=== PATIENT | female | born 1980 | race Caucasian/White ===

== ENCOUNTER → 2020-09-18 14:22 | Outpatient (CLI) | payer SELFPAY ==
[2020-09-18 13:39] VITALS: BMI 35.2
[2020-09-18 15:08] LABS: Absolute Lymphocyte Count 1.49 X10^3/uL (0.83-4.51); Absolute Neutrophil Count 4.8 X10^3/uL (2.0-7.7); Basophil# 0.04 X10^3/uL; Basophil% 0.6 % (0-1); Eosinophil# 0.31 X10^3/uL; Eosinophils% 4.5 % (0-5); Hematocrit 42.3 % (37-47); Hemoglobin 13.9 g/dL (12.0-15.0); Lymphocyte # 1.49 X10^3/ul (0.83-4.51); Lymphocyte % 21.5 % (19-41); Mean Corp Hgb Conc 32.9 g/dL (32-36); Mean Corpuscular Hgb 30.8 pg (27.0-32.0); Mean Corpuscular Volume 93.6 fL (81-99); Mean Platelet Vol. 10.9 fl (6.2-12.0); Monocyte% 4.3 % (0-10); NRBC Flagged by Analyzer 0 % (0-5); Neutrophil # 4.78 X10^3/uL (2.7-7.7); Neutrophil % 68.8 % (47-70); Platelet Count 293 K/mm3 (150-450); RBC Distribution Width CV 12.6 % (11.6-14.6); RBC Distribution Width SD 43.5 fl (35.1-43.9); Red Blood Count 4.52 M/mm3 (4.2-5.4); White Blood Count 6.9 K/mm3 (4.4-11.0)
[2020-09-18 15:50] LABS: Vitamin D,25 Hydroxy 35.9 ng/mL
[2020-09-18 15:59] LABS: AST(SGOT) 20 U/L (15-37); Alanine Aminotransfer ALT/SGPT 33 U/L (13-56); Albumin, Serum 4.1 g/dL (3.2-5.0); Alkaline Phosphatase 79 U/L (45-117); Anion Gap 10 (5-15); BUN 10 mg/dL (7-18); BUN/Creat Ratio 11.1 RATIO (10-20); Calcium,Total 8.9 mg/dL (8.5-10.1); Chloride 104 mmol/L (98-107); Cholesterol 194 mg/dL (200); EST Glomerular Filtration Rate 74 mL/min (>60); Est Glom Filt Rate - Afr Amer 90 mL/min (>60); Free T3 2.2 pg/mL (2.18-3.98); Globulin 4.1 g/dL (2.2-4.2); Glucose 81 mg/dL (74-106); High Density Lipoprotein 63 mg/dL; Potassium 3.9 mmol/L (3.5-5.1); Protein, Total 8.2 g/dL (6.4-8.2); Sodium Level 142 mmol/L (136-145); T4 Free Direct 1.19 ng/dL (0.76-1.46); Thyroid Stim Hormone (TSH) 2.12 uIU/mL (0.358-3.74); Triglycerides 161 mg/dL; Very Low Density Lipoprotein 32 mg/dL (5-40)
== END ==
PROVIDERS: Physician Assistant; PCP Internal Medicine; Referring Provider Internal Medicine; Visit Provider Internal Medicine
DX: E03.9 Hypothyroidism, unspecified (principal); R00.2 Palpitations; R07.9 Chest pain, unspecified; F41.9 Anxiety disorder, unspecified
CPT/HCPCS: 36415; 80053; 80061; 82306; 83036; 84439; 84443; 84481; 85025

== ENCOUNTER → 2020-09-19 10:22 | Outpatient (CLI) | payer SELFPAY ==
[2020-09-18 13:39] VITALS: BMI 35.2
--- NOTE | 2020-09-19 10:25 | EKG12_ITS ---
Test Reason : CP Blood Pressure : / mmHG Vent. Rate : 077 BPM Atrial Rate : 077 BPM P-R Int : 132 ms QRS Dur : 082 ms QT Int : 396 ms P-R-T Axes : 053 081 053 degrees QTc Int : 448 ms Normal sinus rhythm Normal ECG Confirmed by KELSEY LANCE, MARGI ([id number]), medical transcription editor SIXTO MAYO ([id number]) on 09/20/2020 10:18:09 AM Referred By: Mariam Millan Confirmed By:MARGI COLE MD
--- NOTE | 2020-09-19 10:40 | RAD_ITS ---
STUDY: X-RAY CHEST REASON FOR EXAM: Female, 39 years old. Chest pain TECHNIQUE: PA and lateral views of the chest. COMPARISON: None. FINDINGS: The lungs are clear and expanded. There is no demonstrated pleural abnormality. Normal size heart. Normal mediastinum and harry. Normal visualized pulmonary arteries. Normal visualized aortic arch and descending thoracic aorta. Normal visualized thoracic spine. Normal visualized ribs, clavicles, and shoulders. There is no demonstrated abnormality of the visualized soft tissue structures of the upper abdomen. RAD/Chest PA and Lateral IMPRESSION: Normal x-ray examination of the chest. Electronically Signed: Maynor Strong MD at 13:35 EDT Tel , Service support ,
== END ==
PROVIDERS: PCP Internal Medicine; Referring Provider Physician Assistant; Visit Provider Physician Assistant
DX: R07.9 Chest pain, unspecified (principal); R00.2 Palpitations; E03.9 Hypothyroidism, unspecified; F10.10 Alcohol abuse, uncomplicated; F41.9 Anxiety disorder, unspecified
CPT/HCPCS: 71046; 93005

== ENCOUNTER → 2020-10-11 12:10 | Outpatient (CLI) | payer SELFPAY ==
[2020-10-10 14:54] VITALS: BMI 35.2
== END ==
LOC: BIMLAB 12:11
PROVIDERS: PCP Internal Medicine; Referring Provider Internal Medicine; Visit Provider Internal Medicine
DX: R03.0 Elevated blood-pressure reading, without diagnosis of hypertension (principal); R07.89 Other chest pain
CPT/HCPCS: 36415; 82088; 84244

== ENCOUNTER → 2020-10-17 | Outpatient (CLI) | payer SELFPAY ==
[2020-10-10 14:54] VITALS: BMI 35.2
[2020-10-20 12:08] LABS: Cortisol, Urinary Free 17 ug/L (Undefined); Dopamine, UR 93 ug/L (Undefined); Epinephrine, 24Ur 5 ug/24 hr (0-20); Epinephrine, Ur 3 ug/L (Undefined); Norepinephrine, 24Ur 33 ug/24 hr (0-135); Norepinephrine, Ur 21 ug/L (Undefined)
[2020-10-20 13:02] LABS: Cortisol, Free 24Ur 26 ug/24 hr (6-42); Dopamine, 24Ur 144 ug/24 hr (0-510)
== END | disposition home or self-care (01) ==
LOC: LABSPEC 09:18
PROVIDERS: PCP Internal Medicine; Referring Provider Internal Medicine; Visit Provider Internal Medicine
DX: R03.0 Elevated blood-pressure reading, without diagnosis of hypertension (principal); R07.89 Other chest pain
CPT/HCPCS: 81050; 82384; 82530

== ENCOUNTER 2021-07-05 08:42 | Emergency (ER) | payer SELFPAY ==
[2021-07-05 08:42] VITALS: BP 149/96; PULSE 100; RESP 16; TEMP 36.1; O2SAT 97; BMI 32.3
[2021-07-05 08:51] VITALS: RESP 17
--- NOTE | 2021-07-05 09:15 | CT_ITS ---
STUDY: CT ABDOMEN AND PELVIS WITHOUT CONTRAST REASON FOR EXAM: Female, 40 years old. Left-sided flank pain. History of kidney stones. RADIATION DOSAGE (If Supplied By Facility): CTDIvol = ( 14.82 ) mGy, DLP = ( 751.67 ) mGycm TECHNIQUE: Transaxial images were obtained from the dome of the diaphragm to the symphysis pubis without oral contrast, and without intravenous contrast. Sagittal and coronal images were reconstructed. Individualized dose optimization techniques were used for this CT. COMPARISON: Comparison is made with prior study 12/30/2011. FINDINGS: The visualized lung bases are unremarkable. The visualized portions of the heart are within normal limits. Normal liver. Normal gallbladder and extrahepatic biliary system. Normal spleen. Normal pancreas. Normal bilateral adrenal glands. Normal right kidney. Normal left kidney. There is a small hiatal hernia. Normal small intestine. Normal colon. The appendix is visualized and appears normal. Normal abdominal aorta. Normal inferior vena cava. Normal retroperitoneum. Normal urinary bladder. Small amount of free fluid is seen in the cul-de-sac. Normal abdominal wall. Normal osseous structures. CT/Abdomen/Pelvis without Cont IMPRESSION: Small amount of free fluid is seen in the cul-de-sac. Electronically Signed: Mikey Araujo MD at 10:54 EDT ,
--- NOTE | 2021-07-05 09:16 | EX.ED.DYSGE1 ---
HPI <DOLLY Burns - Last Filed: 07/05/21 11:33> History of Present Illness Chief Complaint: Flank Pain Narrative Narrative: 40-year-old female with history of hypothyroidism presents to the emergency department with left-sided flank pain. Patient states that 4 days ago, she believes she had a bladder infection, she was having urgency, bladder spasms. Patient states that yesterday she developed sharp pains to her left flank and is radiating around her left side. Patient has had kidney stones in the past states this does feel similar. Denies any fevers or chills. Patient states the pain can go anywhere from a 4 to a 10. Patient has been using EZO which has given her little relief. She is here for evaluation. PFS <DOLLY Burns - Last Filed: 07/05/21 11:33> [facility] Medical History (Updated 07/05/21 @ 11:12 by DOLLY Burns) Anemia Arthritis section wound complication Hernia History of kidney stones Nephrolithiasis Urinary tract infection Home Medications 5-hydroxytryptophan (5-HTP) 100 mg capsule 100 mg PO DAILY 09/18/20 [History Last Taken Unknown] PROBIOITCIS PO 09/18/20 [History Last Taken Unknown] aDRENAL-LF PO 09/18/20 [History Last Taken Unknown] digestive enzymes 1 cap PO DAILY 09/18/20 [History Last Taken Unknown] hpa- [place]-LF PO 09/18/20 [History Last Taken Unknown] levothyroxine 125 mcg tablet 125 mcg PO DAILY 09/18/20 [History Last Taken Unknown] melatonin 5 mg capsule mg PO 09/18/20 [History Last Taken Unknown] tLHGAS-FXV-QSK-BORON PO 09/18/20 [History Last Taken Unknown] hydroxyzine HCl 50 mg tablet 50 mg PO ONCE PRN #30 tab 09/20/20 [Rx Last Taken Unknown] hemp chew PO 10/10/20 [History Last Taken Unknown] JAMBOLA PO 10/11/20 [History Last Taken Unknown] cephalexin 500 mg PO Q6 #40 cap 07/05/21 [Rx Last Taken Unknown] oxycodone-acetaminophen [Percocet] 1 tab PO Q6H PRN 2 Days #7 tab 07/05/21 [Rx Last Taken Unknown] Allergy/AdvReac Type Severity Reaction Status Date / Time iodamide Allergy Mild edema Verified 10/10/20 14:52 Family History Other Anxiety CVA (cerebral vascular accident) Hypertension Thyroid disorder Social History (Updated 09/21/20 @ 08:37 by KIESHA Jernigan) Smoking Status: Never smoker alcohol intake: current alcohol intake frequency: 3 or more drinks per day Alcohol type: wine and hard liquor substance use type: does not use ROS <DOLLY Burns - Last Filed: 07/05/21 11:33> ROS ED ROS Narrative Constitutional: Negative for fever, chills, weight loss, weakness Eyes: Negative for vision loss, vision change, double vision ENT: Negative for any sore throat, ear pain, congestion Cardiovascular: Negative for any chest pain, tightness, palpitations, racing heartbeat Respiratory: Negative for any cough, sputum production, hemoptysis, shortness of breath, shortness of breath on exertion, orthopnea Gastrointestinal: Negative for any abdominal pain, vomiting, diarrhea, constipation, blood in stool, blood in vomit. Positive for nausea : Negative for any urinary frequency, incontinence, dysuria, retention, blood in urine Muscle skeletal: Negative for any muscle joint pain, stiffness, myalgias, arthralgias, neck pain. Positive for left-sided back pain, flank pain Neurological: Negative for any headache, dizziness, syncope, numbness or tingling Skin: Negative for any rashes, lumps, itching, abrasions, lacerations Psychiatric: Negative for any depression, anxiety, stress, suicidal ideation, homicidal ideation Hematologic: Negative for any easy bruising, excessive bruising, easy bleeding Allergies: Negative for any eczema, hives, rash EXAM <DOLLY Burns - Last Filed: 07/05/21 11:33> Physical Exam Narrative Exam Narrative: Vital signs reviewed. Patient is tearful on examination, mild distress secondary to left-sided flank pain. HEET: Head normocephalic atraumatic, TMs clear bilaterally. Posterior pharynx is clear, moist mucous membranes. Nares clear bilaterally. Neck: Supple with no lymphadenopathy or tenderness. No signs of meningismus, negative jolt sign. Cardiac: Regular rate and rhythm no murmurs gallops or rubs, equal peripheral pulses bilaterally. Respiratory: Lungs clear to auscultation bilaterally. No chest tenderness. Abdomen: Soft, nontender, nondistended. No abdominal bruit or pulsatile masses. No hepatosplenomegaly Extremities: No peripheral edema, no signs of gross trauma or deformity. Active full range of motion of all extremities. Neuro: Cranial nerves II through XII intact, no focal neurological deficits. Skin: Clean dry and intact with no rash, purpura, petechiae, vesicles or pustules. Backslash flank: Left-sided CVA tenderness, no midline spinal tenderness, no deformity. Psych: Normal mood and affect. No SI, HI or acute psychosis. Const Vital Signs: 07/05/21 08:42 07/05/21 08:51 07/05/21 11:09 Temperature 96.9 F L Temperature Source Temporal Pulse Rate 100 73 Respiratory Rate 16 17 16 Blood Pressure 149/96 H 124/86 H Blood Pressure Mean 113 98 Pulse Ox 97 98 Oxygen Delivery Method Room Air Room Air 07/05/21 11:31 Temperature Temperature Source Pulse Rate 79 Respiratory Rate Blood Pressure 129/84 H Blood Pressure Mean Pulse Ox 100 Oxygen Delivery Method <Dr. Talon Jones DO - Last Filed: 07/05/21 11:28> Physical Exam Const Vital Signs: 07/05/21 08:42 07/05/21 08:51 07/05/21 11:09 Temperature 96.9 F L Temperature Source Temporal Pulse Rate 100 73 Respiratory Rate 16 17 16 Blood Pressure 149/96 H 124/86 H Blood Pressure Mean 113 98 Pulse Ox 97 98 Oxygen Delivery Method Room Air Room Air 07/05/21 11:31 Temperature Temperature Source Pulse Rate 79 Respiratory Rate Blood Pressure 129/84 H Blood Pressure Mean Pulse Ox 100 Oxygen Delivery Method [facility] <DOLLY Burns - Last Filed: 07/05/21 11:33> [facility] Narrative Medical decision making narrative: Patient appears to be in mild distress secondary left flank pain, patient has had left-sided flank pain for 2 days, urinary tract infectious symptoms for the last 4 days. Patient did receive a kidney stone/pyelonephritis work-up, patient's chemistries were unremarkable, patient CBC was unremarkable. Patient did receive a urinalysis that did show +2 bacteria with leukocytes, positive nitrites. Patient did receive a CT scan of the abdomen pelvis, this did show no renal calculi however did show some small amount of free fluid in the cul-de-sac. This could be secondary to a ruptured ovarian cyst which she states she has had in the past. At this time, I do not believe the patient has an infected kidney stone, patient will be treated for pyelonephritis. She will be given IV fluids, IV Rocephin here, she will be treated with Keflex 500 mg 4 times a day for 7 days. She will also be given 2 days of pain medicine to help her sleep. Patient is agreeable with the plan, she instructed to follow-up with her PCP, she is given strict return precautions to return here for any worsening back pain, fever chills nausea vomiting. Lab Data Labs: Laboratory Results - last 24 hr 07/05/21 07/05/21 07/05/21 09:25 09:40 10:01 WBC Cancelled Corrected WBC Cancelled RBC Cancelled Hgb Cancelled Hct Cancelled MCV Cancelled MCH Cancelled MCHC Cancelled RDW Std Deviation Cancelled RDW Coeff of Aleyda Cancelled Plt Count Cancelled MPV Cancelled Immature Gran % (Auto) Cancelled Neut % (Auto) Cancelled Lymph % (Auto) Cancelled [place] % (Auto) Cancelled Eos % (Auto) Cancelled Baso % (Auto) Cancelled Absolute Neuts (auto) Cancelled Absolute Lymphs (auto) Cancelled Total Counted Cancelled Neutrophils % (Manual) Cancelled Band Neutrophils % Cancelled Lymphocytes % (Manual) Cancelled Monocytes % (Manual) Cancelled Eosinophils % (Manual) Cancelled Basophils % (Manual) Cancelled Metamyelocytes % Cancelled Myelocytes % Cancelled Promyelocytes % Cancelled Blast Cells % Cancelled Plasma Cell % (Manual) Cancelled Other Cells % Cancelled Nucleated RBC % Cancelled Nucleated RBCs/100 WBC Cancelled Differential Comment Cancelled Diff Path Review Cancelled Hypersegmented Neuts Cancelled Atypical Lymphocytes Cancelled Reactive Lymphocytes Cancelled Smudge Cells Cancelled Toxic Granulation Cancelled Toxic Vacuolation Cancelled Dohle Bodies Cancelled Ramirez Rods Cancelled Platelet Estimate Cancelled Plt Morphology Comment Cancelled RBC Morphology Cancelled Polychromasia Cancelled Hypochromasia Cancelled Poikilocytosis Cancelled Basophilic Stippling Cancelled Anisocytosis Cancelled Microcytosis Cancelled Macrocytosis Cancelled Spherocytes Cancelled Sickle Cells Cancelled Target Cells Cancelled Tear Drop Cells Cancelled Ovalocytes Cancelled Stomatocytes Cancelled [place] Bodies Cancelled [place] Cells Cancelled Bite Cells Cancelled Crenated Cell Cancelled Acanthocytes (Spur) Cancelled Rouleaux Cancelled Schistocytes Cancelled Sodium 139 Potassium 4.1 Chloride 108 H Carbon Dioxide 26.0 Anion Gap 5 BUN 14 Creatinine 0.87 Estim Creat Clear Calc 82.08 Est GFR (MDRD) Af Amer 94 Est GFR (MDRD) Non-Af 78 BUN/Creatinine Ratio 16.1 Glucose 84 Calcium 9.2 Urine Color SEE COMMENT BELOW Urine Clarity Sl. Cloudy Urine pH 6.5 Ur Specific [place] 1.015 Urine Protein 30 H Urine Glucose (UA) Normal Urine Ketones 5 H Urine Occult Blood 50 H Urine Nitrite Positive H Urine Bilirubin 6 H Urine Urobilinogen 12 H Ur Leukocyte Esterase 500 H Urine RBC 0 SEEN Urine WBC 50-100 SEEN Ur Squamous Epith Cells 0 SEEN Urine Bacteria 2+ Urine Mucus 0 SEEN Urine Test Negative 07/05/21 10:35 WBC 10.1 Corrected WBC RBC 4.27 Hgb 13.3 Hct 38.9 MCV 91.1 MCH 31.1 MCHC 34.2 RDW Std Deviation 41.3 RDW Coeff of Aleyda 12.4 Plt Count 271 MPV 10.5 Immature Gran % (Auto) 0.800 Neut % (Auto) 75.3 H Lymph % (Auto) 15.6 L [place] % (Auto) 5.2 Eos % (Auto) 2.8 Baso % (Auto) 0.3 Absolute Neuts (auto) 7.6 Absolute Lymphs (auto) 1.58 Total Counted Neutrophils % (Manual) Band Neutrophils % Lymphocytes % (Manual) Monocytes % (Manual) Eosinophils % (Manual) Basophils % (Manual) Metamyelocytes % Myelocytes % Promyelocytes % Blast Cells % Plasma Cell % (Manual) Other Cells % Nucleated RBC % 0 Nucleated RBCs/100 WBC Differential Comment Diff Path Review Hypersegmented Neuts Atypical Lymphocytes Reactive Lymphocytes Smudge Cells Toxic Granulation Toxic Vacuolation Dohle Bodies Ramirez Rods Platelet Estimate Plt Morphology Comment RBC Morphology Polychromasia Hypochromasia Poikilocytosis Basophilic Stippling Anisocytosis Microcytosis Macrocytosis Spherocytes Sickle Cells Target Cells Tear Drop Cells Ovalocytes Stomatocytes [place] Bodies [place] Cells Bite Cells Crenated Cell Acanthocytes (Spur) Rouleaux Schistocytes Sodium Potassium Chloride Carbon Dioxide Anion Gap BUN Creatinine Estim Creat Clear Calc Est GFR (MDRD) Af Amer Est GFR (MDRD) Non-Af BUN/Creatinine Ratio Glucose Calcium Urine Color Urine Clarity Urine pH Ur Specific [place] Urine Protein Urine Glucose (UA) Urine Ketones Urine Occult Blood Urine Nitrite Urine Bilirubin Urine Urobilinogen Ur Leukocyte Esterase Urine RBC Urine WBC Ur Squamous Epith Cells Urine Bacteria Urine Mucus Urine Test Radiography Diagnostic Testing: Clinical Impression(s) from Imaging Studies Abdomen/Pelvis CT 07/05/21 09:15 IMPRESSION: Small amount of free fluid is seen in the cul-de-sac. Electronically Signed: Mikey Araujo MD at 10:54 EDT , <Dr. Talon Jones, DO - Last Filed: 07/05/21 11:28> [facility] Narrative Medical decision making narrative: I have personally performed a face to face assessment of the patient and have reviewed the LIVAN Note. I performed a substantive portion of the visit including all aspects of the following. My mckinney findings include: History: Patient presents with left flank pain and lower abdominal pain that has been getting worse over the last couple days. Patient states she started with some pressure in her lower abdomen. Patient states this progressed up into her left flank. Patient denies any fevers or chills. Patient admits to some hematuria and urinary frequency. Patient states she feels like she has pressure over her bladder area. Exam: Vital signs are stable. Patient is afebrile. Patient is in no acute distress. Oral mucosa is pink and moist. Neck is supple. Trachea is midline. There is no JVD. Heart was regular rate and rhythm. Lungs are clear and equal bilaterally. Abdomen is soft. Bowel sounds are normal. There is some mild suprapubic tenderness. There is no rebound or guarding noted. There is left CVA tenderness. Cranial nerves II through XII are intact. There are no focal motor or sensory deficits. Medical Decison Making patient was given IV fluids and Toradol here. CBC was within normal limits. Basic metabolic profile was essentially within normal limits. CT scan of the abdomen pelvis was obtained. There is no acute abnormality noted. There is some mild fluid in the cul-de-sac. This was interpreted by the radiologist and reviewed by myself. Urinalysis shows leukocyte esterases of 500 with 50-100 white blood cells and positive nitrates. There is 2+ bacteria. Patient was given a dose of Rocephin here. Urine culture was ordered. Patient was given a prescription for Keflex. Patient was instructed to follow-up in 5 to 7 days. Patient understood and was agreeable with the plan. All questions were answered. Lab Data Attestation: I reviewed the patient's lab results. Labs: Laboratory Results - last 24 hr 07/05/21 07/05/21 07/05/21 09:25 09:40 10:01 WBC Cancelled Corrected WBC Cancelled RBC Cancelled Hgb Cancelled Hct Cancelled MCV Cancelled MCH Cancelled MCHC Cancelled RDW Std Deviation Cancelled RDW Coeff of Aleyda Cancelled Plt Count Cancelled MPV Cancelled Immature Gran % (Auto) Cancelled Neut % (Auto) Cancelled Lymph % (Auto) Cancelled [place] % (Auto) Cancelled Eos % (Auto) Cancelled Baso % (Auto) Cancelled Absolute Neuts (auto) Cancelled Absolute Lymphs (auto) Cancelled Total Counted Cancelled Neutrophils % (Manual) Cancelled Band Neutrophils % Cancelled Lymphocytes % (Manual) Cancelled Monocytes % (Manual) Cancelled Eosinophils % (Manual) Cancelled Basophils % (Manual) Cancelled Metamyelocytes % Cancelled Myelocytes % Cancelled Promyelocytes % Cancelled Blast Cells % Cancelled Plasma Cell % (Manual) Cancelled Other Cells % Cancelled Nucleated RBC % Cancelled Nucleated RBCs/100 WBC Cancelled Differential Comment Cancelled Diff Path Review Cancelled Hypersegmented Neuts Cancelled Atypical Lymphocytes Cancelled Reactive Lymphocytes Cancelled Smudge Cells Cancelled Toxic Granulation Cancelled Toxic Vacuolation Cancelled Dohle Bodies Cancelled Ramirez Rods Cancelled Platelet Estimate Cancelled Plt Morphology Comment Cancelled RBC Morphology Cancelled Polychromasia Cancelled Hypochromasia Cancelled Poikilocytosis Cancelled Basophilic Stippling Cancelled Anisocytosis Cancelled Microcytosis Cancelled Macrocytosis Cancelled Spherocytes Cancelled Sickle Cells Cancelled Target Cells Cancelled Tear Drop Cells Cancelled Ovalocytes Cancelled Stomatocytes Cancelled [place] Bodies Cancelled [place] Cells Cancelled Bite Cells Cancelled Crenated Cell Cancelled Acanthocytes (Spur) Cancelled Rouleaux Cancelled Schistocytes Cancelled Sodium 139 Potassium 4.1 Chloride 108 H Carbon Dioxide 26.0 Anion Gap 5 BUN 14 Creatinine 0.87 Estim Creat Clear Calc 82.08 Est GFR (MDRD) Af Amer 94 Est GFR (MDRD) Non-Af 78 BUN/Creatinine Ratio 16.1 Glucose 84 Calcium 9.2 Urine Color SEE COMMENT BELOW Urine Clarity Sl. Cloudy Urine pH 6.5 Ur Specific [place] 1.015 Urine Protein 30 H Urine Glucose (UA) Normal Urine Ketones 5 H Urine Occult Blood 50 H Urine Nitrite Positive H Urine Bilirubin 6 H Urine Urobilinogen 12 H Ur Leukocyte Esterase 500 H Urine RBC 0 SEEN Urine WBC 50-100 SEEN Ur Squamous Epith Cells 0 SEEN Urine Bacteria 2+ Urine Mucus 0 SEEN Urine Test Negative 07/05/21 10:35 WBC 10.1 Corrected WBC RBC 4.27 Hgb 13.3 Hct 38.9 MCV 91.1 MCH 31.1 MCHC 34.2 RDW Std Deviation 41.3 RDW Coeff of Aleyda 12.4 Plt Count 271 MPV 10.5 Immature Gran % (Auto) 0.800 Neut % (Auto) 75.3 H Lymph % (Auto) 15.6 L [place] % (Auto) 5.2 Eos % (Auto) 2.8 Baso % (Auto) 0.3 Absolute Neuts (auto) 7.6 Absolute Lymphs (auto) 1.58 Total Counted Neutrophils % (Manual) Band Neutrophils % Lymphocytes % (Manual) Monocytes % (Manual) Eosinophils % (Manual) Basophils % (Manual) Metamyelocytes % Myelocytes % Promyelocytes % Blast Cells % Plasma Cell % (Manual) Other Cells % Nucleated RBC % 0 Nucleated RBCs/100 WBC Differential Comment Diff Path Review Hypersegmented Neuts Atypical Lymphocytes Reactive Lymphocytes Smudge Cells Toxic Granulation Toxic Vacuolation Dohle Bodies Ramirez Rods Platelet Estimate Plt Morphology Comment RBC Morphology Polychromasia Hypochromasia Poikilocytosis Basophilic Stippling Anisocytosis Microcytosis Macrocytosis Spherocytes Sickle Cells Target Cells Tear Drop Cells Ovalocytes Stomatocytes [place] Bodies [place] Cells Bite Cells Crenated Cell Acanthocytes (Spur) Rouleaux Schistocytes Sodium Potassium Chloride Carbon Dioxide Anion Gap BUN Creatinine Estim Creat Clear Calc Est GFR (MDRD) Af Amer Est GFR (MDRD) Non-Af BUN/Creatinine Ratio Glucose Calcium Urine Color Urine Clarity Urine pH Ur Specific [place] Urine Protein Urine Glucose (UA) Urine Ketones Urine Occult Blood Urine Nitrite Urine Bilirubin Urine Urobilinogen Ur Leukocyte Esterase Urine RBC Urine WBC Ur Squamous Epith Cells Urine Bacteria Urine Mucus Urine Test Radiography Diagnostic Testing: Clinical Impression(s) from Imaging Studies Abdomen/Pelvis CT 07/05/21 09:15 IMPRESSION: Small amount of free fluid is seen in the cul-de-sac. Electronically Signed: Mikey Araujo MD at 10:54 EDT , Discharge Plan Triage Chief Complaint: Flank Pain ED Midlevel Provider: Parminder Tariq ED Provider: Talon Jones Dx/Rx/DC Orders Clinical Impression: Pyelonephritis Instructions: Kidney Infec Dc, ED Pyelonephritis, Female (Adult), ED Infec Bladder Female Ch Prescriptions: New cephalexin 500 mg capsule 500 mg PO Q6 Qty: 40 RF: 0 oxycodone-acetaminophen [Percocet] 5-325 mg tablet 1 tab PO Q6H PRN (Reason: pain) 2 Days Qty: 7 RF: 0 No Action hemp chew PO RF: 0 JAMBOLA PO RF: 0 levothyroxine 125 mcg tablet 125 mcg PO DAILY RF: 0 5-hydroxytryptophan (5-HTP) [5-HTP] 100 mg capsule 100 mg PO DAILY RF: 0 melatonin 5 mg capsule PO RF: 0 hpa- [place]-LF PO RF: 0 hRUDWX-QTA-YKU-BORON PO RF: 0 aDRENAL-LF PO RF: 0 digestive enzymes Capsule 1 cap PO DAILY RF: 0 PROBIOITCIS PO RF: 0 hydroxyzine HCl 50 mg tablet 50 mg PO ONCE PRN (Reason: anxiety) Qty: 30 RF: 0 Primary Care Provider: Talia Ball Referrals: Talia Ball MD [Primary Care Provider] - Activity Restrictions/Additional Instructions: Please take the full dose of antibiotics, use pain medicine as needed. Please return for any worsening back pain, fever chills nausea or vomiting. Print Language: Slovak Disposition Disposition: Home, Self Care
[2021-07-05 09:33] LABS: Mucous, Urine 0 SEEN /hpf (<or=2+); Red Blood Cells-Urine 0 SEEN /hpf (0-5); Squamous Epithelial Cells - UA 0 SEEN /hpf (5-10)
[2021-07-05 09:34] LABS: Glucose, Dipstick Normal (Normal); Ketone-Dipstick 5 mg/dl (Negative); Leukocyte Esterase-Dipstick 500 /ul (Negative); Nitrite-Dipstick Positive (Negative); Occult Blood-Urine 50 /ul (Negative); Protein-Dipstick 30 mg/dl (Negative); Specific Gravity, Urine 1.015 (1.002-1.030); Urine Clarity Sl. Cloudy (Clear); Urine Urobilinogen 12 mg/dl (Normal); Urine pH 6.5 (5.0 - 8.0)
[2021-07-05] MEDS: 0.9% Normal Saline 1,000 ML 1000 ML IV (09:39)
[2021-07-05] MEDS: Ketorolac 15 MG/ML Vial IV (09:39)
[2021-07-05 09:41] LABS: Color, Urine SEE COMMENT BELOW (Yellow); Urine Bilirubin Dipstick 6 mg/dL (Negative)
[2021-07-05 09:42] LABS: Bacteria 2+ /hpf (None Seen); Internal QC Validated? YES +Cl - CLEAR BKGD; Pregnancy, Urine Negative Negative; White Blood Cells 50-100 SEEN /hpf (0-5)
[2021-07-05 09:58] LABS: Anion Gap 5 (5-15); BUN 14 mg/dL (7-18); BUN/Creat Ratio 16.1 RATIO (10-20); Calcium,Total 9.2 mg/dL (8.5-10.1); Chloride 108 mmol/L (98-107); Creatinine, Serum 0.87 mg/dL (0.55-1.02); EST Glomerular Filtration Rate 78 mL/min (>60); Est Glom Filt Rate - Afr Amer 94 mL/min (>60); Estimated Creatinine Clearance 82.08 ml/min; Glucose 84 mg/dL (74-106); Potassium 4.1 mmol/L (3.5-5.1); Sodium Level 139 mmol/L (136-145)
[2021-07-05 10:46] LABS: Absolute Lymphocyte Count 1.58 X10^3/uL (0.83-4.51); Absolute Neutrophil Count 7.6 X10^3/uL (2.0-7.7); Basophil# 0.03 X10^3/uL; Basophil% 0.3 % (0-1); Eosinophil# 0.28 X10^3/uL; Eosinophils% 2.8 % (0-5); Hematocrit 38.9 % (37-47); Hemoglobin 13.3 g/dL (12.0-15.0); Lymphocyte # 1.58 X10^3/ul (0.83-4.51); Lymphocyte % 15.6 % (19-41); Mean Corp Hgb Conc 34.2 g/dL (32-36); Mean Corpuscular Hgb 31.1 pg (27.0-32.0); Mean Corpuscular Volume 91.1 fL (81-99); Mean Platelet Vol. 10.5 fl (6.2-12.0); Monocyte# 0.53 X10^3/uL; Monocyte% 5.2 % (0-10); NRBC Flagged by Analyzer 0 % (0-5); Neutrophil # 7.64 X10^3/uL (2.7-7.7); Neutrophil % 75.3 % (47-70); Platelet Count 271 K/mm3 (150-450); RBC Distribution Width CV 12.4 % (11.6-14.6); RBC Distribution Width SD 41.3 fl (35.1-43.9); Red Blood Count 4.27 M/mm3 (4.2-5.4); White Blood Count 10.1 K/mm3 (4.4-11.0)
[2021-07-05] MEDS: Ceftriaxone 1 GM/50 ML BAG IV (11:02)
[2021-07-05 11:09] VITALS: BP 124/86; PULSE 73; RESP 16; O2SAT 98
[2021-07-05 11:31] VITALS: BP 129/84; PULSE 79; O2SAT 100
== END 2021-07-05 11:39 | disposition home or self-care (01) ==
PROVIDERS: Nurse Practitioner; Emergency Provider Emergency Medicine; PCP Internal Medicine; Visit Provider Emergency Medicine
DX: N12 Tubulo-interstitial nephritis, not specified as acute or chronic (principal); E03.9 Hypothyroidism, unspecified; Z79.899 Other long term (current) drug therapy
CPT/HCPCS: 36415; 74176; 80048; 81001; 81025; 85025; 87077; 87086; 87088; 87186; 96361; 96365; 96375; 99283; J7030

== ENCOUNTER 2021-09-24 12:40 | Emergency (ER) | payer SELFPAY ==
[2021-09-24 12:41] VITALS: BP 145/97; PULSE 76; RESP 18; TEMP 36.7; O2SAT 100; BMI 34.0
--- NOTE | 2021-09-24 13:05 | EDS_ITS ---
HPI History of Present Illness Chief Complaint: Wound Check Informant: patient Narrative Narrative: [id number] female presenting to the emergency department pain and swelling of the left hand. Patient states that last while on vacation in [place] she cut her left hand on the palmar surface with a knife while cutting an avocado. She got stitches and was on azithromycin for strep throat and they wrote for her to have twice daily Keflex. She started that on Friday but has now started taking it every 6 hours. Patient denies any fevers. [facility] Medical History Anemia Arthritis section wound complication Hernia History of kidney stones Nephrolithiasis Urinary tract infection Home Medications 5-hydroxytryptophan (5-HTP) 100 mg capsule (5-HTP) 100 mg PO DAILY 09/18/20 [History Last Taken Unknown] PROBIOITCIS PO 09/18/20 [History Last Taken Unknown] aDRENAL-LF PO 09/18/20 [History Last Taken Unknown] digestive enzymes 1 cap PO DAILY 09/18/20 [History Last Taken Unknown] hpa- [place]-LF PO 09/18/20 [History Last Taken Unknown] levothyroxine 125 mcg tablet 125 mcg PO DAILY 09/18/20 [History Last Taken Unknown] melatonin 5 mg capsule mg PO 09/18/20 [History Last Taken Unknown] pMAGSS-HGE-WKT-BORON PO 09/18/20 [History Last Taken Unknown] hydroxyzine HCl 50 mg tablet 50 mg PO ONCE PRN anxiety #30 tabs 09/20/20 [Rx Last Taken Unknown] hemp chew PO 10/10/20 [History Last Taken Unknown] JAMBOLA PO 10/11/20 [History Last Taken Unknown] oxycodone-acetaminophen 5 mg-325 mg tablet (Percocet) 1 tab PO Q6H PRN pain 2 days #7 tabs 07/05/21 [Rx Last Taken Unknown] cephalexin 500 mg capsule 500 mg PO BID 09/24/21 [History Last Taken Unknown] cephalexin 500 mg capsule 500 mg PO Q6 #28 CAPSULES 09/24/21 [Rx Last Taken Unknown] hydrocodone-acetaminophen 5-325mg 5mg-325mg 1 tab PO Q6H PRN PRN Pain 3 days #12 TABLETS 09/24/21 [Rx Last Taken Unknown] sulfamethoxazole 800 mg-trimethoprim 160 mg tablet 1 tab PO BID #14 TABLETS 09/24/21 [Rx Last Taken Unknown] Allergy/AdvReac Type Severity Reaction Status Date / Time Iodinated Contrast Media Allergy Other Verified 09/24/21 12:43 Family History Other Anxiety CVA (cerebral vascular accident) Hypertension Thyroid disorder Social History Smoking Status: Never smoker alcohol intake: current alcohol intake frequency: 3 or more drinks per day Alcohol type: wine and hard liquor substance use type: does not use EXAM Physical Exam Const Vital Signs: 09/24/21 12:41 Temperature 98.1 F Temperature Source Temporal Pulse Rate 76 Respiratory Rate 18 Blood Pressure 145/97 H Blood Pressure Mean 113 Pulse Ox 100 Oxygen Delivery Method Room Air Positive well nourished and well developed General Appearance ED: well developed HEENT Reports normocephalic, head/scalp atraumatic and moist mucous membranes Eyes PERRL and EOMs intact bilaterally Neck no lymphadenopathy, supple and no JVD Resp normal respiratory effort and clear to auscultation bilaterally Cardio regular rate, regular rhythm and no murmurs GI normal to inspection, nondistended, normoactive bowel sounds and non-tender Palpation: soft Back/Spine no CVA tenderness and normal ROM Extremity Extremity Narrative: There is some mild swelling erythema increased warmth located over the dorsum of the left hand. There is a healing laceration on the palmar surface. There is no drainage from the wound. No lymphangitis. General Extremety ED: Negative for edema General Extremity: Negative for edema Neuro oriented x3 and CN's II-XII intact bilaterally Sensorium / Orientation: alert Motor Exam: strength 5/5 throughout Psych mental status grossly normal Mood & Affect: Negative for depressed or tearful Skin no rashes or lesions noted and no wounds MDM MDM MDM Narrative Medical decision making narrative: I can write for the patient to have pain medication. Would recommend every 6 hours dosing of the Keflex we can add in some Bactrim. Patient to monitor return if worsening or concerns Discharge Plan Triage Chief Complaint: Wound Check ED Provider: Stephen Enriquez Dx/Rx/DC Orders Clinical Impression: Cellulitis of hand Instructions: ED Cellulitis Prescriptions: New hydrocodone-acetaminophen [hydrocodone-acetaminophen] 5-325 mg tablet 1 tab PO Q6H PRN PRN (Reason: Pain) 3 Days Qty: 12 0RF cephalexin [cephalexin] 500 mg capsule 500 mg PO Q6 Qty: 28 0RF sulfamethoxazole-trimethoprim [sulfamethoxazole-trimethoprim] 800-160 mg tablet 1 tab PO BID Qty: 14 0RF No Action hemp chew PO JAMBOLA PO levothyroxine 125 mcg tablet 125 mcg PO DAILY 5-hydroxytryptophan (5-HTP) [5-HTP] 100 mg capsule 100 mg PO DAILY melatonin 5 mg capsule PO hpa- [place]-LF PO zGGEUA-LOR-SKY-BORON PO aDRENAL-LF PO digestive enzymes Capsule 1 cap PO DAILY Rx Instructions: administer with food; swallow whole; do not crush/chew/dissolve/break/cut PROBIOITCIS PO oxycodone-acetaminophen [Percocet] 5-325 mg tablet 1 tab PO Q6H PRN (Reason: pain) 2 Days Qty: 7 0RF cephalexin 500 mg capsule 500 mg PO BID hydroxyzine HCl 50 mg tablet 50 mg PO ONCE PRN (Reason: anxiety) Qty: 30 0RF Primary Care Provider: Talia Ball Referrals: Talia Ball MD [Primary Care Provider] - As Needed Disposition Disposition: Home, Self Care
== END 2021-09-24 13:16 | disposition home or self-care (01) ==
PROVIDERS: Emergency Provider Emergency Medicine; PCP Internal Medicine; Visit Provider Emergency Medicine
DX: L03.114 Cellulitis of left upper limb (principal)
CPT/HCPCS: 99282

== ENCOUNTER → 2022-01-31 | Outpatient (CLI) | payer SELFPAY ==
[2022-01-31 12:52] LABS: Absolute Lymphocyte Count 1.97 X10^3/uL (0.83-4.51); Absolute Neutrophil Count 5.8 X10^3/uL (2.0-7.7); Basophil# 0.06 X10^3/uL; Basophil% 0.7 % (0-1); Eosinophil# 0.48 X10^3/uL; Eosinophils% 5.5 % (0-5); Hematocrit 41.2 % (37-47); Hemoglobin 13.5 g/dL (12.0-15.0); Lymphocyte # 1.97 X10^3/ul (0.83-4.51); Lymphocyte % 22.6 % (19-41); Mean Corp Hgb Conc 32.8 g/dL (32-36); Mean Corpuscular Hgb 30.8 pg (27.0-32.0); Mean Corpuscular Volume 94.1 fL (81-99); Mean Platelet Vol. 10.7 fl (6.2-12.0); Monocyte# 0.41 X10^3/uL; Monocyte% 4.7 % (0-10); NRBC Flagged by Analyzer 0 % (0-5); Neutrophil # 5.76 X10^3/uL (2.7-7.7); Neutrophil % 66.2 % (47-70); Platelet Count 275 K/mm3 (150-450); RBC Distribution Width CV 12.2 % (11.6-14.6); RBC Distribution Width SD 42.7 fl (35.1-43.9); Red Blood Count 4.38 M/mm3 (4.2-5.4); White Blood Count 8.7 K/mm3 (4.4-11.0)
[2022-01-31 12:55] LABS: Erythrocyte Sedimentation Rate 32 mm/hr (0-30)
[2022-01-31 13:38] LABS: ALB/GLOB Ratio 0.9 RATIO (0.9-2.4); AST(SGOT) 15 U/L (15-37); Alanine Aminotransfer ALT/SGPT 27 U/L (13-56); Albumin, Serum 3.7 g/dL (3.2-5.0); Alkaline Phosphatase 59 U/L (45-117); Anion Gap 6 (5-15); BUN 10 mg/dL (7-18); BUN/Creat Ratio 12.1 RATIO (10-20); CRP, High Sensitivity Cardiac 5.45 mg/L; Calcium,Total 9.1 mg/dL (8.5-10.1); Chloride 106 mmol/L (98-107); Creatinine, Serum 0.83 mg/dL (0.55-1.02); EST Glomerular Filtration Rate 81 mL/min (>60); Est Glom Filt Rate - Afr Amer 98 mL/min (>60); Globulin 4.1 g/dL (2.2-4.2); Glucose 89 mg/dL (74-106); Potassium 4.1 mmol/L (3.5-5.1); Protein, Total 7.8 g/dL (6.4-8.2); Sodium Level 139 mmol/L (136-145); T4 Free Direct 0.86 ng/dL (0.76-1.46); Thyroid Stim Hormone (TSH) 4.21 uIU/mL (0.358-3.74)
== END | disposition home or self-care (01) ==
LOC: LAB 12:18
PROVIDERS: PCP Internal Medicine; Visit Provider Internal Medicine
DX: R00.2 Palpitations (principal); E03.9 Hypothyroidism, unspecified; R07.89 Other chest pain
CPT/HCPCS: 36415; 80053; 84439; 84443; 84481; 85025; 85652; 86141

== ENCOUNTER → 2022-02-22 | Outpatient (CLI) | payer SELFPAY ==
--- NOTE | 2022-02-22 11:38 | STE_ITS ---
Reason For Study: Chest Pain Stress Results Protocol: Aron Protocol Maximum Predicted HR: 181 bpm Target HR: 154 bpm % Maximum Predicted HR: 91 % DurationHeart Rate Stage (mm:ss) (bpm) BP Comment Baseline 71 124/80No Chest Pain; Medicated With Benadryl In CT Aron Protocol Stage I 3:00 105 118/74No Chest Pain Aron Protocol Stage II 3:00 123 124/70No Chest Pain; Positive Dizziness Aron Protocol Stage III 1:29 164 / No Chest Pain; Positive Dizziness Recovery 80 122/70No Chest Pain Stress Duration: 7:29 mm:ss Maximum Stress HR: 164 bpm METS: 10 Baseline Echocardiogram Findings Stress Echo Wall motion Data Resting WM Intermediate WM Stress WM ECHO/Stress Test Echo w/o Contrast Interpretation Summary Exercise stress echo. 41-year-old lady with a history of chest pain. Stress protocol: Resting EKG demonstrates normal sinus rhythm with a rate of 64 bpm normal inter vals are noted resting blood pressure is 124/80 mmHg. The patient exercised according to the r egular Aron protocol for a total duration of 7 minutes and 29 seconds. The maximum heart rate was 16 6 bpm which was 91% of max impacted heart rate the maximum workload was 10.1 metabolic equivalents. At rest there were no ST or T wave changes noted to suggest ischemia and at peak exercise upslopin g ST changes were noted with did not meet the criteria for ischemia. No clinical angina was noted . The test was terminated due to the target heart rate being achieved. The peak blood pressure was 132/80 mmHg which was a good blood pressure respons e to exercise. Stress echocardiogram. Resting echocardiogram demonstrated preserved left ventricular systolic functio n estimated ejection fraction of 55 to 60%. No wall motion abnormalities were noted. At peak exercis e there was thickening of all olivares reduction in low ventricular cavity size and peaking of ejection fraction at approximately 70%. Conclusion: Normal exercise stress echo at a high workload. Preserved ejection fraction. Excellent functional aerobic capacity. Ordering Physician: Gurinder Romero Referring Physician: Gurinder Romero Performed By: Jourdan Guillen RCS
--- NOTE | 2022-02-22 11:38 | CT_ITS ---
INDICATION: chest pain EXAMINATION: CT CHEST WITH CONTRAST - CT Chest W/ Contrast Injection TECHNIQUE: Helically acquired images were obtained of the chest following IV contrast. A radiation dose optimization technique was used for this scan. IV Contrast dosage and agent: COMPARISON: Chest x-ray 09/19/2020 FINDINGS: LUNGS, PLEURA AND LARGE AIRWAYS: No masses, consolidation, or edema. No pleural effusion or thickening. No pneumothorax. THYROID: No thyroid lesions. HEART AND PERICARDIUM: Heart size is normal. No pericardial effusion. VESSELS: Thoracic aorta is not dilated. No aortic dissection. No obvious central pulmonary embolism although this study was not performed with the pulmonary embolism protocol. MEDIASTINUM AND LEI: No mediastinal or hilar adenopathy. Esophagus is unremarkable. No hiatal hernia. UPPER ABDOMEN: No acute pathology. BONES: No suspicious lytic or blastic abnormality. CT/Chest WITH Contrast IMPRESSION: Negative contrast enhanced CT of the chest. Electronically Signed: Maynor Strong MD at 12:46 EST ,
[2022-02-22 11:53] VITALS: BP 142/89; PULSE 73; RESP 16; TEMP 36.9; O2SAT 100; BMI 32.3
[2022-02-22] MEDS: MethylPREDNISolone 125 MG/2 ML Vial IV (12:01)
[2022-02-22] MEDS: DiphenhydrAMINE 50 MG/ML Syringe 25 MG IV (12:01)
[2022-02-22 13:10] VITALS: BP 140/91; PULSE 79; RESP 14; O2SAT 100
== END | disposition home or self-care (01) ==
LOC: CT 11:36
PROVIDERS: PCP Internal Medicine; Referring Provider Internal Medicine Cardiovascular Disease; Visit Provider Internal Medicine Cardiovascular Disease
DX: R07.89 Other chest pain (principal)
CPT/HCPCS: 71260; 93017; 93350; 96374; Q9967; A4216

== ENCOUNTER → 2022-10-10 | Outpatient (CLI) | payer MEDICAID, SELFPAY ==
[2022-10-10 11:26] LABS: Absolute Lymphocyte Count 1.45 X10^3/uL (0.83-4.51); Basophil# 0.03 X10^3/uL; Basophil% 0.6 % (0-1); Eosinophil# 0.36 X10^3/uL; Eosinophils% 7.2 % (0-5); Hematocrit 41.2 % (37-47); Hemoglobin 13.2 g/dL (12.0-15.0); Lymphocyte # 1.45 X10^3/ul (0.83-4.51); Lymphocyte % 28.9 % (19-41); Mean Corpuscular Hgb 30.7 pg (27.0-32.0); Mean Corpuscular Volume 95.8 fL (81-99); Mean Platelet Vol. 10.5 fl (6.2-12.0); Monocyte# 0.21 X10^3/uL; Monocyte% 4.2 % (0-10); NRBC Flagged by Analyzer 0 % (0-5); Neutrophil # 2.96 X10^3/uL (2.7-7.7); Neutrophil % 58.9 % (47-70); Platelet Count 262 K/mm3 (150-450); RBC Distribution Width CV 12.8 % (11.6-14.6); RBC Distribution Width SD 44.7 fl (35.1-43.9)
[2022-10-10 11:45] LABS: Vitamin D,25 Hydroxy 55.1 ng/mL
[2022-10-10 11:52] LABS: AST(SGOT) 12 U/L (15-37); Alanine Aminotransfer ALT/SGPT 26 U/L (13-56); Albumin, Serum 3.7 g/dL (3.2-5.0); Alkaline Phosphatase 63 U/L (45-117); Anion Gap 6 (5-15); BUN 13 mg/dL (7-18); BUN/Creat Ratio 13.9 RATIO (10-20); Calcium,Total 8.6 mg/dL (8.5-10.1); Chloride 107 mmol/L (98-107); Cholesterol 172 mg/dL (200); Creatinine, Serum 0.93 mg/dL (0.55-1.02); EST Glomerular Filtration Rate 71 mL/min (>60); Est Glom Filt Rate - Afr Amer 86 mL/min (>60); Free T3 1.9 pg/mL (2.18-3.98); Globulin 3.8 g/dL (2.2-4.2); Glucose 91 mg/dL (74-106); High Density Lipoprotein 53 mg/dL; Potassium 4.2 mmol/L (3.5-5.1); Protein, Total 7.5 g/dL (6.4-8.2); Sodium Level 139 mmol/L (136-145); T4 Free Direct 0.75 ng/dL (0.76-1.46); Thyroid Stim Hormone (TSH) 9.48 uIU/mL (0.358-3.74); Triglycerides 69 mg/dL; Very Low Density Lipoprotein 14 mg/dL (5-40)
[2022-10-10 12:02] LABS: Hemoglobin A1c 5.1 % (3.8-5.6)
== END | disposition home or self-care (01) ==
LOC: LAB 10:41
PROVIDERS: PCP Internal Medicine; Referring Provider Internal Medicine; Visit Provider Internal Medicine
DX: F41.9 Anxiety disorder, unspecified (principal); E03.9 Hypothyroidism, unspecified; E66.9 Obesity, unspecified; E55.9 Vitamin D deficiency, unspecified; R73.9 Hyperglycemia, unspecified
CPT/HCPCS: 36415; 80053; 80061; 82306; 83036; 84439; 84443; 84481; 85025

== ENCOUNTER 2022-11-17 15:46 | Emergency (ER) | payer MEDICAID, SELFPAY ==
[2022-11-17 15:47] VITALS: BP 126/80
[2022-11-17 15:48] VITALS: PULSE 86; RESP 18; TEMP 36.1; O2SAT 100; BMI 32.5
--- NOTE | 2022-11-17 15:50 | RAD_ITS ---
STUDY: X-RAY - RIGHT RADIUS AND ULNA REASON FOR EXAM: Female, 42 years old. injury TECHNIQUE: 2 view(s) of the forearm. COMPARISON: None. FINDINGS: There is no demonstrated soft tissue swelling. Normal visualized radius. Normal visualized ulna. There is no demonstrated acute fracture. RAD/Forearm 2 Views IMPRESSION: Normal x-ray examination of the radius and ulna. Electronically Signed: Marc Villa MD at 17:23 EDT ,
--- NOTE | 2022-11-17 16:48 | RAD_ITS ---
STUDY: X-RAY - RIGHT HAND REASON FOR EXAM: Female, 42 years old. injury TECHNIQUE: 3 view(s) of the hand. COMPARISON: None. FINDINGS: Normal radiocarpal articulation. Normal distal radioulnar joint. Normal visualized carpal bones. Normal carpal articulations Normal carpometacarpal articulation of the thumb. Normal second through fifth carpometacarpal joints. Normal metacarpi. Normal metacarpophalangeal joint of the thumb. Normal interphalangeal joint of the thumb. Normal proximal and distal phalanges of the thumb. Normal metacarpophalangeal joints of the second through fifth fingers. Normal proximal and distal interphalangeal joints of the second through fifth fingers. Normal phalanges of the second through fifth fingers. The soft tissue structures are unremarkable. RAD/Hand Min 3 Views IMPRESSION: Normal x-ray examination of the hand. Electronically Signed: Marc Villa MD at 17:22 EDT ,
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
--- NOTE | 2022-11-17 17:31 | ED.RN ---
pt. left without paperwork and fredy wrap
== END 2022-11-17 17:47 | disposition home or self-care (01) ==
PROVIDERS: Emergency Provider Emergency Medicine; PCP Internal Medicine; Visit Provider Emergency Medicine
DX: S50.11XA Contusion of right forearm, initial encounter (principal); S60.221A Contusion of right hand, initial encounter; Y92.812 Truck as the place of occurrence of the external cause; Z87.891 Personal history of nicotine dependence; X58.XXXA Exposure to other specified factors, initial encounter
CPT/HCPCS: 73090; 73130; 99282

== ENCOUNTER → 2022-11-28 | Outpatient (CLI) | payer MEDICAID, SELFPAY ==
--- NOTE | 2022-11-28 13:57 | RAD_ITS ---
INDICATION: hand trauma, compare with recent films EXAMINATION/TECHNIQUE: X-RAY - RIGHT XR Hand Min 3 Views 3 VIEWS COMPARISON: Prior study dated: 11/17/2022 FINDINGS: SOFT TISSUES: No soft tissue swelling or gas. No radiopaque foreign body. BONES/JOINTS: No acute fracture or subluxation.. Normal alignment. Preservation of the joint spaces.. No sclerotic or destructive changes observed. RAD/Hand Min 3 Views IMPRESSION: No fracture or malalignment. Electronically Signed: Sai Ortiz MD at 22:38 EDT ,
[2022-11-28 16:14] LABS: T4 Free Direct 0.79 ng/dL (0.76-1.46); Thyroid Stim Hormone (TSH) 8.52 uIU/mL (0.358-3.74)
== END | disposition home or self-care (01) ==
LOC: LAB 13:37
PROVIDERS: PCP Internal Medicine; Referring Provider Internal Medicine; Visit Provider Internal Medicine
DX: S60.221D Contusion of right hand, subsequent encounter (principal); E03.9 Hypothyroidism, unspecified
CPT/HCPCS: 36415; 73130; 84439; 84443; 84481